=== PATIENT | female | born 1960 | race Caucasian/White ===

== ENCOUNTER 2020-02-25 11:44 | Emergency (ER) | payer OTHER ==
[2020-02-25 14:06] LABS: HEMOGLOBIN 12.4 gm/dl (12.3-15.3); RED BLOOD COUNT 3.63 M/UL (4.00-5.10)
[2020-02-25 14:47] LABS: BUN/CREATININE RATIO 13 (0-10)
[2020-02-25] MEDS ORDERED: NORFLEX 100 MG100 MG PO (18:18)
[2020-02-25] MEDS ORDERED: BACTROBAN OINT22 GM EXT (18:18)
== END 2020-02-25 18:35 | disposition home or self-care (01) ==
LOC: ER1 11:44
PROVIDERS: Physician Assistant Medical
DX: T14.8XXA Other injury of unspecified body region, initial encounter (principal); S60.221A Contusion of right hand, initial encounter; S70.01XA Contusion of right hip, initial encounter; S00.81XA Abrasion of other part of head, initial encounter; R07.81 Pleurodynia; M79.605 Pain in left leg; M54.2 Cervicalgia; M54.6 Pain in thoracic spine; M54.5 Low back pain; F17.210 Nicotine dependence, cigarettes, uncomplicated; Z88.0 Allergy status to penicillin; V49.40XA Driver injured in collision with unspecified motor vehicles in traffic accident, initial encounter; Y92.410 Unspecified street and highway as the place of occurrence of the external cause; Z23 Encounter for immunization
CPT/HCPCS: 70450; 71260; 72125; 72131; 73130; 73552; 73590; 73610; 80053; 82550; 82553; 83874; 84484; 85025; 90471; 90715; 93005; 99284; Q9967

== ENCOUNTER 2021-07-26 16:30 | Emergency (ER) | payer MEDICARE ==
[~2021-07-26 16:30] MED LIST: BACTROBAN OINT22 GM EXT; NORFLEX 100 MG100 MG PO
[2021-07-26 18:52] LABS: HEMOGLOBIN 13.8 gm/dl (12.3-15.3); RED BLOOD COUNT 3.99 M/UL (4.00-5.10); WHITE BLOOD COUNT 9.7 K/UL (4.5-11.0)
[2021-07-26 19:14] LABS: BUN/CREATININE RATIO 18 (0-10)
== END 2021-07-26 20:34 | disposition home or self-care (01) ==
LOC: ER1 16:30
PROVIDERS: Emergency Medicine
DX: T58.91XA Toxic effect of carbon monoxide from unspecified source, accidental (unintentional), initial encounter (principal); R55 Syncope and collapse; F17.200 Nicotine dependence, unspecified, uncomplicated
CPT/HCPCS: 36600; 70450; 80048; 81001; 82550; 82553; 82805; 84484; 85025; 87086; 93005; 99284